=== PATIENT | male | born 1960 | race Caucasian/White ===

== ENCOUNTER 2018-01-18 11:54 | Emergency (ER) | payer BC ==
[~2018-01-18] VITALS: Ht 182.9 cm; Wt 86.2 kg
--- NOTE | 2018-01-18 12:08 | NUR ---
Patient ambulated to bathroom with slow steady gait, NAD.
[2018-01-18] MEDS ORDERED: HYDROCODONE/APAP 5-325MG TABLET PO ONE (12:15)
[2018-01-18] MEDS ORDERED: HYDROCODONE/APAP 5-325MG TABLET ONE (12:32)
--- NOTE | 2018-01-18 12:59 | NUR ---
Patient discharged to home in stable conditon. Written and verbal after care instructions given to patient and spouse. Patient verbalizes understanding of instructions.
== END 2018-01-18 13:09 | disposition home or self-care (01) ==
LOC: ER 11:56
DX: R51 Headache (principal); I95.9 Hypotension, unspecified
CPT/HCPCS: 70450; 99284; A4663